=== PATIENT | male | born 1945 | race Caucasian/White ===

== ENCOUNTER → 2018-02-22 | Outpatient (CLI) | payer MEDICARE, OTHER ==
[~2018-02-22] MED LIST: ACEON; ACET325 PO; AMLO10 PO; ASPI81CH; ASPI81EC; ATOR10; ATOR40TA PO; Cardizem CD 12120 MG PO; DIPATR PO; FISH1000; HYDACE10B PO; HYDACE5 PO; LEVFLO500 PO; LEVO750 PO; LORA1 PO; LOSA50 PO; LOSARTAN/HCTZ PO; METR500 PO; MULVITMIND; NEBI10 PO; OXYACE5T PO; OXYC5 PO; RXHYD5325 PO; SAW PALMETTO 160 MG; TAMS.4ER PO; TRIHYD253A; UNK DIURETIC; VALS80; VALS80 PO; ZESTORETIC 20-121 EA PO; ZOLP10 PO; ZOLP5; [UNRECOGNIZED DRUG - REMARK]; [UNRECOGNIZED DRUG - REMARK]
== END ==
LOC: LAB SHORT 08:04 → LAB EV 08:04
DX: M79.641 Pain in right hand (principal)
CPT/HCPCS: 84550

== ENCOUNTER → 2018-11-17 | Outpatient (CLI) | payer MEDICARE, OTHER ==
[2018-11-17 13:42] LABS: Source, Urine Clean Catch
[2018-11-17 14:25] LABS: Bacteria Not Seen /hpf; Red Blood Cells, Urine Not Seen /hpf (0-2); Squamous Epithelial Cells Not Seen /hpf (Few); White Blood Cells, Urine Not Seen /hpf (0-5)
== END | disposition home or self-care (01) ==
LOC: LAB SHORT 11:50 → LAB EV 11:50
PROVIDERS: Family Medicine
DX: R31.9 Hematuria, unspecified (principal)
CPT/HCPCS: 81015; 87086

== ENCOUNTER 2019-01-05 08:51 | Day surgery (SDC) | payer MEDICARE, OTHER ==
[~2019-01-05] VITALS: Ht 177.8 cm; Wt 84.4 kg
[~2019-01-05 08:51] MED LIST changes: +MAGOXI400 PO
== END 2019-01-05 10:53 | disposition home or self-care (01) ==
LOC: ORSCSDS 08:51
PROVIDERS: Internal Medicine Gastroenterology
PROC: 0DJD8ZZ Inspection of Lower Intestinal Tract, Via Natural or Artificial Opening Endoscopic (ICD-10-PCS; principal; 2019-01-05 10:00)
DX: Z12.11 Encounter for screening for malignant neoplasm of colon (principal); Z86.010 Personal history of colon polyps; K57.30 Diverticulosis of large intestine without perforation or abscess without bleeding; I10 Essential (primary) hypertension; Z80.0 Family history of malignant neoplasm of digestive organs; Z79.82 Long term (current) use of aspirin; Z79.899 Other long term (current) drug therapy
CPT/HCPCS: J2704; J7120

== ENCOUNTER 2019-04-30 13:59 | Emergency (ER) | payer MEDICARE, OTHER ==
[~2019-04-30] VITALS: Ht 177.8 cm; Wt 81.7 kg
== END 2019-04-30 17:01 | disposition home or self-care (01) ==
LOC: ER 13:59
DX: M25.552 Pain in left hip (principal); X58.XXXA Exposure to other specified factors, initial encounter; Z79.899 Other long term (current) drug therapy; I10 Essential (primary) hypertension; G47.30 Sleep apnea, unspecified
CPT/HCPCS: 73502; 99283-25

== ENCOUNTER → 2020-09-02 | Outpatient (CLI) | payer MEDICARE, OTHER ==
[~2020-09-02] MED LIST changes: +ASCO500 PO
== END ==
LOC: PLD 13:54 → LAB SHORT 13:54
DX: D48.5 Neoplasm of uncertain behavior of skin (principal)
CPT/HCPCS: 88341; 88342